=== PATIENT | female | born 1995 | race American Indian/Alaskan Native ===

== ENCOUNTER 2022-01-05 15:25 | Outpatient (CLI) | payer BC ==
[2022-01-05 15:55] VITALS: BP 116/57
[2022-01-05] MEDS ORDERED: LACTATED RINGERS 500 ML IV ONE (16:23)
== END 2022-01-05 16:37 | disposition home or self-care (01) ==
LOC: TRG 15:25 → APU 15:27 → TRG 16:37
PROVIDERS: ATTEND Obstetrics & Gynecology
DX: Z34.93 Encounter for supervision of normal pregnancy, unspecified, third trimester (principal); Z3A.32 32 weeks gestation of pregnancy
CPT/HCPCS: 59025